=== PATIENT | male | born 1980 | race Hispanic/Latino ===

== ENCOUNTER 2018-08-05 15:06 | Emergency (ER) | payer SELFPAY ==
[2018-08-05] MEDS ORDERED: HYDROcodone/Acetaminophen 5/325 mg Tablet ONE (15:37)
[2018-08-05] MEDS ORDERED: Adacel (T-DAP) 0.5 ML VIAL ONE (15:37)
--- NOTE | 2018-08-05 15:56 | RAD ---
RIGHT WRIST THREE VIEWS: History: 37-year-old male with history of right wrist pain following an injury. FINDINGS: Marked soft tissue swelling, particularly dorsally. NO acute fracture or dislocation. IMPRESSION: Soft tissue swelling without fracture or dislocation. POS: [facility]
[2018-08-05] MEDS ORDERED: Bacitracin Zinc 1 Packet ONE (15:57)
--- NOTE | 2018-08-05 16:02 | RAD ---
RIGHT HAND THREE VIEWS: History: 37-year-old male with history of right hand pain following an injury. Patient's arm caught in a guy n gin. FINDINGS/IMPRESSION: Prominent soft tissue swelling over the dorsal aspect of the wrist and hand. Several intraosseous cys tic foci are noted in the distal third metacarpal. Mild degenerative changes. No acute fracture or di slocation. POS: [facility]
== END 2018-08-05 16:33 | disposition home or self-care (01) ==
LOC: ERS 15:06
DX: S60.811A Abrasion of right wrist, initial encounter (principal); S60.511A Abrasion of right hand, initial encounter; Z79.899 Other long term (current) drug therapy; W31.9XXA Contact with unspecified machinery, initial encounter
CPT/HCPCS: 90715

== ENCOUNTER 2019-01-29 10:07 | Outpatient (CLI) | payer OTHER ==
--- NOTE | 2019-01-29 13:29 | RAD ---
LEFT KNEE FOUR VIEWS: HISTORY: Left knee pain. COMPARISON: None. FINDINGS: Four views of the left knee show no evidence of acute fracture or dislocation. No degenerative cosme es are seen. No soft tissue swelling is seen. No knee effusion is present. IMPRESSION: No significant abnormality. POS: [facility]
== END 2019-01-29 10:08 | disposition home or self-care (01) ==
LOC: BICRAD 10:07
PROVIDERS: ATTEND Nurse Practitioner Family
DX: M25.562 Pain in left knee (principal)

== ENCOUNTER 2020-08-18 10:42 | Emergency (ER) | payer SELFPAY ==
--- NOTE | 2020-08-18 11:35 | RAD ---
XR Wrist 3 Rt View STANDARD History: Fall. Pain Comparison: Radiograph 2018 Findings: Intra-articular distal radius fracture with mild dorsal angulation and impaction as well as displacement and secondary positive ulnar variance. There is approximately 8 mm of impaction. Ulnar styloid is intact. No definitive scaphoid fracture. Impression: Intra-articular distal radius fracture mild impaction and dorsal angulation with secondar y positive ulnar variance..
--- NOTE | 2020-08-18 11:47 | CT ---
CT BRAIN WITHOUT CONTRAST: Date: 08/18/2020 HISTORY: Level II trauma; fell off roof. Headache. FINDINGS: No evidence of acute infarct, hemorrhage, midline shift, or abnormal extra-axial fluid collections ar e seen. The ventricular size is normal and the basilar cisterns are patent. The bony calvarium is int act. The visualized paranasal sinuses and mastoid air cells are well aerated. IMPRESSION: No CT evidence of acute intracranial process. Discussed over phone with ER physician, Dr. Gucci Downs, at 1135 hours. CODE CR.
== END 2020-08-18 12:42 | disposition home or self-care (01) ==
LOC: ERS 10:42
DX: S52.571A Other intraarticular fracture of lower end of right radius, initial encounter for closed fracture (principal); I10 Essential (primary) hypertension; F32.9 Major depressive disorder, single episode, unspecified; Z79.899 Other long term (current) drug therapy; W17.89XA Other fall from one level to another, initial encounter
CPT/HCPCS: 29125; 70450

== ENCOUNTER 2020-08-23 07:29 | Outpatient (CLI) | payer OTHER, SELFPAY ==
[2020-08-24 16:05] LABS: SARS-CoV-2 MS2 Positive; SARS-CoV-2 N Gene Negative; SARS-CoV-2 S Gene Negative; SARS-CoV-2 by NAA Not Detected (NotDetected); SARS-CoV-2 orf1ab Negative
== END 2020-08-23 07:30 | disposition home or self-care (01) ==
LOC: LABBT 07:29
PROVIDERS: ATTEND Orthopaedic Surgery
DX: S52.501A Unspecified fracture of the lower end of right radius, initial encounter for closed fracture (principal); Z20.828 Contact with and (suspected) exposure to other viral communicable diseases
CPT/HCPCS: 87635; U0003

== ENCOUNTER 2020-08-25 12:31 | Day surgery (SDC) | payer OTHER ==
[2020-08-24 12:22] VITALS: BMI 39.0
[2020-08-25] MEDS ORDERED: Ondansetron PF 4 MG/2 ML Vial ONE (12:53)
[2020-08-25] MEDS ORDERED: Dexamethasone 20 MG/5 ML VIAL ONE (12:53)
[2020-08-25] MEDS ORDERED: PROPOFOL 200 MG/20 ML VIAL ONE (12:53)
[2020-08-25] MEDS ORDERED: Lidocaine 1% PF 5 ML VIAL ONE (12:53)
[2020-08-25] MEDS ORDERED: PHENYLEPHRINE-NS 100 MCG/ML 10 ML SYRINGE ONE (12:53)
[2020-08-25] MEDS ORDERED: Bupivacaine HCl 0.5%/Epinephrine 1:200,000/PF 30 ml Vial ONE (12:53)
[2020-08-25] MEDS ORDERED: Fentanyl 100 MCG/2 ML VIAL ONE ×2 (13:15→13:17)
[2020-08-25] MEDS ORDERED: Midazolam HCl 2 mg/2 ml Vial ONE (13:15)
--- NOTE | 2020-08-25 15:11 | RAD ---
RIGHT WRIST: 08/25/20 Two fluoroscopic views presented. INDICATIONS: Open reduction internal fixation right wrist. FINDINGS: Views show plate and screws transfixing the distal radius. POS: [facility]
--- NOTE | 2020-08-25 21:27 | OP ---
DATE OF PROCEDURE: 08/25/2020 PROCEDURE PERFORMED: Open reduction and internal fixation of right distal radial fracture. PREOPERATIVE DIAGNOSIS: Displaced right distal radial fracture. POSTOPERATIVE DIAGNOSIS: Displaced right distal radial fracture. COMPLICATIONS: None. ESTIMATED BLOOD LOSS: Minimal. [facility] OPERATOR HELPER: MARTÍNEZ Scruggs . IMPLANT: Synthes volar distal radial plate with multiple locking and nonlocking screws. INDICATIONS: Mr. Deluna is a 39-year-old male, who fell from a roof. He fractured his distal radius. He was indicated for open reduction and internal fixation to restore anatomic alignment and promote healing. Risks have been reviewed in detail. He elected to proceed with the operation. DESCRIPTION OF PROCEDURE: The patient was identified in the preoperative holding area. His correct extremity was marked. He was carried to the operating room. He was positioned supine. General anesthesia was induced. A multidisciplinary time-out was performed. The right upper extremity was prepped and draped in sterile fashion. We began the procedure with a volar approach to the distal radius. We dissected down through the subcutaneous tissues to the FCR tendon sheath, which was opened. We then exposed the underlying quadratus muscle, which was elevated from the distal radius. At this point, we pulled traction and reduced the distal radial bone back into its anatomic position. We applied a Synthes volar distal radial plate. Multiple screws were placed distally and proximally locking the plate to the bone. At this point, we took x-ray images confirming hardware placement and we had an adequate reduction. We finished filling all screw holes. We then proceeded to take final x-ray images. Finally, we thoroughly irrigated with copious lavage. We then closed appropriately in layers. A sterile dressing was applied and a splint. The patient was taken to the recovery room at this point in good condition. The ophthalmic medical assistant surgeon was responsible for positioning the patient, preparing the injured extremity, applying the tourniquet, and assisting in preparation for surgery. The ophthalmic medical assistant was instrumental in reducing the injured limb by applying traction and reduction maneuvers as well as holding retractors and reduction tools. The ophthalmic medical assistant also was instrumental in assisting in exposure throughout the operation using appropriate retractors. The ophthalmic medical assistant participated in closure of the operative site as well as dressing application and splint application. Job ID: [id number]
== END 2020-08-25 17:20 | disposition home or self-care (01) ==
LOC: SDC 12:31
PROVIDERS: ATTEND Orthopaedic Surgery
PROC: 0PSH04Z Reposition Right Radius with Internal Fixation Device, Open Approach (ICD-10-PCS; principal; 2020-08-25)
DX: S52.531A Colles' fracture of right radius, initial encounter for closed fracture (principal); I10 Essential (primary) hypertension; E78.00 Pure hypercholesterolemia, unspecified; Z79.899 Other long term (current) drug therapy; W13.2XXA Fall from, out of or through roof, initial encounter
CPT/HCPCS: 76000; C1713; J0690; J1100; J2250; J2405; J2704; J3010